=== PATIENT | male | born 1950 | race Caucasian/White ===

== ENCOUNTER 2019-09-02 06:23 | Day surgery (SDC) | payer MEDICARE ==
[~2019-09-02 06:23] MED LIST: Buffered Lidocaine 1% SYRIN* 1 ML/SYRINGE INTRADERM ONE; Dexamethasone TAB* 4 MG PO ONE; DiMENhydriNATE IV* 50 MG/ML VIAL IV PUSH PRN; Famotidine IV* 10 MG/ML 2 ML (20 mg) IV ONE; HYDROmorphone INJ1* 1 MG/ML SYRINGE IV PRN; Lactated Ringers 1000 ML Bag* 1,000 ML IV SCH; Naloxone* 0.4 MG/ML 1 ML VIAL IV PRN; Ondansetron ODT TAB* 4 MG PO ONE; PROCHLORPERAZINE INJ 5 MG/ML 2 ML VIAL IV PRN; oxyCODONE TAB* 5 MG TAB PO PRN
[2019-09-02] MEDS ORDERED: Dexamethasone TAB* 4 MG ONE (06:27)
[2019-09-02] MEDS ORDERED: Ondansetron ODT TAB* 4 MG ONE (06:27)
[2019-09-02] MEDS ORDERED: Famotidine IV* 10 MG/ML 2 ML (20 mg) ONE (06:28)
[2019-09-02] MEDS ORDERED: Clindamycin 900 MG/D5W BAG(*) 900 MG/50 ML BAG IVPB ONE (06:30)
[2019-09-02] MEDS ORDERED: Scopolamine 1.5 mg* PATCH ONE (06:53)
[2019-09-02] MEDS ORDERED: Bupivacaine 0.25% SDV* 30 ML ONE (07:04)
[2019-09-02] MEDS ORDERED: fentaNYL* 50 MCG/ML 2 ML VIAL (100 MCG VIAL) ONE ×3 (07:12→08:59)
[2019-09-02] MEDS ORDERED: KETAMINE HCL* 50 MG/ML 10 ML VIAL ONE (07:12)
[2019-09-02] MEDS ORDERED: Midazolam* 1 MG/ML 5 ML VIAL (5 MG) ONE (07:13)
[2019-09-02] MEDS ORDERED: Ketorolac INJ* 30 MG/ML 1 ML VIAL ONE (08:11)
[2019-09-02] MEDS ORDERED: Lidocaine 0.5%* 50 ML SDV ONE (08:11)
[2019-09-02] MEDS ORDERED: Acetaminophen IV 1GM/100ML * 100 ML ONE (08:11)
[2019-09-02] MEDS ORDERED: Propofol* 10 MG/ML 20 ML BTL ONE (08:11)
[2019-09-02] MEDS ORDERED: oxyCODONE ORAL.SOLN* 5 MG/5 ML UDC ONE (08:59)
[2019-09-02] MEDS: fentaNYL* 50 MCG/ML 2 ML VIAL (100 MCG VIAL) IV PRN ×2 (09:02→09:27)
[2019-09-02 10:50] VITALS: BP 120/74
--- NOTE | 2019-09-02 20:04 | OP ---
CC: PCPDr. Wei * DATE OF OPERATION: 09/02/19 - [facility] DATE OF : 48 SURGEON: Mik Kiser MD MANAGER MARKET RESEARCH: TANA Lucas. An assistant nurse manager was needed for the entirety of the case to help with positioning, retraction, and was utilized throughout all portions of the case. ANESTHESIOLOGIST: Dr. Hernandez. ANESTHESIA: General with interscalene block. PRE-OP DIAGNOSES: Right shoulder osteoarthritis and partial tear of the rotator cuff. POST-OP DIAGNOSES: Right shoulder osteoarthritis and partial tear of the rotator cuff. OPERATIVE PROCEDURE: Right shoulder arthroscopy with: 1. Extensive glenohumeral debridement including chondroplasty and biceps tenotomy. 2. Revision subacromial decompression and acromioplasty. 3. Rotator cuff repair using Regeneten patch. COMPLICATIONS: None. ESTIMATED BLOOD LOSS: Minimal. IMPLANTS: One Regeneten patch size large with appropriate tendon wilmar and PEEK wilmar. INDICATIONS: Crescencio Sanchez is a 69-year-old male who has had persistent shoulder pain for some time. He is a teacher and a assistant baseball coach. He does have some mild osteoarthritis as well as partial tearing of the rotator cuff. After extensive discussion of the risks and benefits of operative versus nonoperative treatment , he is elected to proceed with surgical treatment. Risks include, but are not limited to bleeding; infections; damage to nerves, vessels, surrounding structures; wound nonhealing; persistent pain; need for surgery; scarring, stiffness; incomplete relief of symptoms; risks of anesthesia. DESCRIPTION OF PROCEDURE: The patient was greeted in the preoperative area by attending surgeon. Correct extremity was marked. Consent was confirmed. The patient underwent interscalene nerve block by anesthesiologist, after which he was brought back to the operative suite, placed in supine position on the operating table, and underwent general anesthesia and LMA intubation. After which, he was placed in the left lateral decubitus position with all bony prominences padded. He was secured with pegboard. An axillary roll was placed. The right arm was draped unsterile with 10 pounds of traction. The right shoulder was then prepped and draped in usual sterile fashion beginning with chlorhexidine prep, scrub and alcohol wipe and a final prep with ChloraPrep. After appropriate surgical pause indicating site, side, and procedure and administration of antibiotics, a standard posterolateral portal was made sharply with 11-blade. Scope was introduced into the joint and the joint was examined. There was abundant synovitis and inflammation. The biceps was still there and there was obvious type 2 superior labral tear. The anterior portal was made in an outside-in fashion. The shaver was used to debride back the anterior, posterior, and superior labrum. The biceps was then tenotomized for later tenodesis. The subscap was intact. There was an evidence of grade 3 chondral lesion about the superior, somewhat anterior aspect of the humerus. The glenoid had grade 1 and 2 changes, very minimal arthritic change, looked like a focal osteochondral lesion of the humerus. There was some osteophyte building at the inferior aspect of the humerus as well at the humeral head. The inferior recess was intact. There was abundant synovitis. The shaver was used to debride back anterior, posterior, and superior labrum. Biceps was tenotomized. The shaver was used to do a small chondroplasty for the grade 2, the grade 3 lesion. The undersurface of the rotator cuff was examined and found to be intact, but had some high-grade partial thickness tearing. This was then marked with an 0 PDS suture to make sure that there was no evidence of full thickness tear. Once the debridement was complete, attention was directed to the subacromial space. The scope was positioned in the subacromial space. The lateral portal was made in an outside-in fashion. There was abundant bursa that was present. The patient had a previous open subacromial decompression. The shaver was used to debride back the abundant scar tissue that was present. The undersurface of the acromion was skeletonized using electrocautery device and there was an irregular spur. This was then debrided back using a 4-0 oval fernando. All loose debris was removed and attention was directed to the rotator cuff. The previously placed PDS suture was visualized. There was no evidence of full thickness tear. There were no fluid egress when the scope initially placed, so therefore the decision was made to treat this with Regeneten patch. A size large patch was then brought to the field and 2 separate stab incisions. Cannulas were placed for tendon staple placement. Once the patch was appropriately positioned, it was secured mainly with tendon wilmar and laterally with PEEK wilmar. The patch was then secured. The final images were obtained. The shoulder was taken through gentle range of motion and found to be intact. The wounds were copiously irrigated with sterile saline. The portals were closed with 3-0 nylon in interrupted fashion. A sterile dressing was applied. A Cryo/Cuff and a regular sling were applied. He was awoken from anesthesia and transferred to PACU in stable condition. POSTOPERATIVE PLAN: He will be nonweightbearing. He will be in sling for approximately 2 to 3 days. He will be discharged on pain medication. DVT prophylaxis considered, but deferred due to no previous personal or family history. I will see the patient back in 10 to 14 days. [id number]/[facility] #: [id number] MTDD
== END 2019-09-02 10:08 | disposition home or self-care (01) ==
LOC: OREAST 06:23
PROVIDERS: ATTEND Orthopaedic Surgery
DX: M19.011 Primary osteoarthritis, right shoulder (principal); M75.111 Incomplete rotator cuff tear or rupture of right shoulder, not specified as traumatic; J45.909 Unspecified asthma, uncomplicated; E78.5 Hyperlipidemia, unspecified; E03.9 Hypothyroidism, unspecified; N40.0 Benign prostatic hyperplasia without lower urinary tract symptoms; M10.9 Gout, unspecified; Z88.0 Allergy status to penicillin; Z88.1 Allergy status to other antibiotic agents; G89.18 Other acute postprocedural pain
CPT/HCPCS: A9270-GY; C1713; J1885; J2250; J2704; J3010; J3490; J8540